=== PATIENT | female | born 1960 | race Caucasian/White ===

== ENCOUNTER 2022-03-27 14:19 | Emergency (ER) | payer SELFPAY ==
--- OUTSIDE RECORDS SUMMARY | 2022-03-27 14:23 | XMS REPORT | Continuity of Care Document ---
:1960 Author Organization [facility] [place] [facility] Address [facility] [place] [address] Care Team Providers Name Role Phone Esteban LAMAS, Pako Vasquez Attending Clinician James CROWE Attending Clinician Ginette LAMAS Attending Clinician GINETTE Attending Clinician Unavailable Ginette LAMAS Admitting Clinician GINETTE Admitting Clinician Unavailable Problems Condition Condition Condition Status Onset Resolution Last Treating Co mments Source Name Details Category Date Date Treatment Clinician Date Urinary Urinary Disease Active Univers tract tract 4-02 ity of obstructio obstructio 00:00: Socialscope n by n by 00 [facility] kidney kidney Branch stone stone Obesity Obesity Disease Active Univers (BMI (BMI 4-02 ity of 30-39.9) 30-39.9) 00:00: [address] Allergies, Adverse Reactions, Alerts Allergy Allergy Status Severity Reaction(s) Onset Inactive Treating Comm ents Source Name Type Date Date Clinician NO KNOWN Drug Active Univers ALLERGIE Class ity of S [facility] Social History Social Habit Start Date Stop Date Quantity Comments Source Exposure to Not sure [facility] SARS-CoV-2 (event) Medica l Branch Tobacco use and 2020-12-08 2020-12-08 Never used [facility] exposure 00:00:00 00:00:00 [facility] Sex [birth year] At [birth year] [facility] 00:00:00 00:00:00 [facility] Smoking Status Start Date Stop Date Source Never smoker General acute hospital Medications Ordered Filled Start Stop Current Ordering Indication Dosage Frequency Signature Comments Components Source Medication Medication Date Date Medication? Clinician (SIG) Name Name lactated Yes 500mL at 75 Univers ringers IV 4-03 mL/hr, 500 ity of infusion 19:15: mL, IV [place] 500 mL 00 Infusion, Medical CONTINUOUS Branch , Starting 12/06/20 at 1415, Until Discontinu ed, Routine, PACU lactated 2020- No 500mL at 75 Univer s ringers IV 12-0604 mL/hr, 500 it y of infusion 19:15: 01:09 mL, IV [place] 500 mL 00 :31 Infusion, Medical CONTINUOUS Branch , Starting 12/06/20 at 1415, Until 12/06/20 at 2009, Routine, PACU ondansetron 2020- No 4mg 4 mg, Slow Univers (ZOFRAN 12-06 IV Push, ity of (PF)) 19:01: 19:11 PRN, 1 [place] injection 4 25 :00 dose, Medical mg Starting Branch 12/06/20 at 1401, Until 12/06/20 at 1411, Routine, Nausea and Vomiting (N/V), PACU ondansetron 2020- No 4mg 4 mg, Slow Univers (ZOFRAN 12-06 IV Push, ity of (PF)) 19:01: 19:11 PRN, 1 [place] injection 4 25 :00 dose, Medical mg Starting Branch 12/06/20 at 1401, Until 12/06/20 at 1411, Routine, Nausea and Vomiting (N/V), PACU iodixanoL 2020- No PRN, Univers (VISIPAQUE 12-06 Starting ity of 270-150 mL) 17:32: 20:04 12/06/20 [place] injection 00 :20 at 1232, Medica l Until Sat Branch 12/06/20 at 1504, Routine, Intra-op enoxaparin Yes 40mg 40 mg, Unive rs (LOVENOX) 12-06 Subcutaneo ity of injection 14:00: [place] 40 mg 00 First dose Medical on Sat Branch 12/06/20 at 0900, Until Discontinu ed, Routine enoxaparin 2020- No 40mg 40 mg, Univ ers (LOVENOX) 12-06- Subcutaneo ity of injection 14:00: 01:09 us, DAILY, [place] 40 mg 00 :31 First dose Medical on Sat Branch 12/06/20 at 0900, Until Discontinu ed, Routine morpHINE No 4mg 4 mg, Slow Un lisa injection 4 12-06 04-04 IV Push, ity of mg 11:18: 00:17 Q4[facility], [place] 43 :09 Starting Medical 12/06/20 Branch at 0618, Until 12/06/20 at 1917, Routine, Pain (scale 7-10) morpHINE No 4mg 4 mg, Slow Un lisa injection 4 12-06 04-04 IV Push, ity of mg 11:18: 00:17 Q4[facility], [place] 43 :09 Starting Medical 12/06/20 Branch at 0618, Until 12/06/20 at 1917, Routine, Pain (scale 7-10) proMETHazin Yes 25mg 25 mg, Univ ers e - Intramuscu ity of (PHENERGAN) 07:47: lar, [place] injection 14 Q6HPRN, Medical 25 mg Starting Branch 12/06/20 at 0247, Until Discontinu ed, Routine, Nausea and Vomiting (N/V) proMETHazin No 25mg 25 mg, Uni vers e 12-06-04 Intramuscu ity of (PHENERGAN) 07:47: 01:09 lar, [place] injection 14 :31 Q6HPRN, Medical 25 mg Starting Branch 12/06/20 at 0247, Until 12/06/20 at 2008, Routine, Nausea and Vomiting (N/V) cefTRIAXone Yes 1000mg 1,000 mg, Univers (ROCEPHIN) 03 IV ity of 1,000 mg in 02:30: Piggyback, [place] NaCl 0.9% 00 Q24H ABX, Medic al (NS) 50 mL First dose Bra [facility] MINI-BAG on Tue12/05/20 at 2130, Until Discontinu ed, 50 mL
R mis for Anti-Infec tive: Documented Infection< br>Documen toro Infection Site: Urine
D uration of Therapy: 7 days NaCl 0.9% Yes 1000mL at 125 Univ ers (NS) IV 4-03 mL/hr, IV ity of infusion 02:30: Infusion, [place] 1,000 mL 00 CONTINUOUS Medic al , Starting Branch Tue12/05/20 at 2130, Until Discontinu ed, Routine cefTRIAXone 2020- No 1000mg 1,000 mg, Univers (ROCEPHIN) 12-06- IV ity of 1,000 mg in 02:30: 01:09 [place], [place] NaCl 0.9% 00 :31 Q24H ABX, Medic al (NS) 50 mL First dose Bra mih MINI-BAG on Tue12/05/20 at 2130, Until Discontinu ed, 50 mL
R mis for Anti-Infec tive: Documented Infection< br>Documen toro Infection Site: Urine
D uration of Therapy: 7 days NaCl 0.9% 2020- No 1000mL at 125 Uni vers (NS) IV 12-06-04 mL/hr, IV ity of infusion 02:30: 01:09 Infusion, [place] 1,000 mL 00 :31 CONTINUOUS Medic al , Starting Branch Tue12/05/20 at 2130, Until 12/06/20 at 2008, Routine cloNIDine Yes .1mg 0.1 mg, Unive rs (CATAPRES) 12-06 Oral, ity of tablet 0.1 01:24: Q4HPRN, [place] mg 29 Starting Medical Tue12/05/20 Branch at 2023, Until Discontinu ed, Routine, above 170/80 cloNIDine 2020- No .1mg 0.1 mg, Univ ers (CATAPRES) 12-06- Oral, ity of tablet 0.1 01:24: 01:09 Q4HPRN, [place] mg 29 :31 Starting Medical [facility] 12/05/20 Branch at 2023, Until 12/06/20 at 2008, Routine, above 170/80 proMETHazin 2020-2020- No 25mg 25 mg, IV Univers e 12-06- Piggyback, ity of (PHENERGAN) 00:45: 23:48 [place]CE, 1 [place] 25 mg in 00 :00 dose, Fri Medica l NaCl 0.9% 12/05/20 at [facility] (NS) 50 mL 1944, 50 piggyback mL morpHINE 0 2020- No 4mg 4 mg, Slow Un lisa injection 4 12-06 IV Push, ity of mg 00:45: 23:39 ONCE, 1 [place] 00 :00 dose, Fri Medical 12/05/20 at [place] 1944, STAT proMETHazin 2020- No 25mg 25 mg, IV Univers e 12-06 Piggyback, ity of (PHENERGAN) 00:45: 23:48 ONCE, 1 [place] 25 mg in 00 :00 dose, Fri Medica l NaCl 0.9% 12/05/20 at [facility] (NS) 50 mL 1944, 50 [place]gyback mL morpHINE 2020- No 4mg 4 mg, Slow Un lisa injection 4 12-06 IV Push, ity of mg 00:45: 23:39 ONCE, 1 [place] 00 :00 dose, [facility] 12/05/20 at [place] 1944, STAT ondansetron Yes 4mg 4 mg, Slow Univers (ZOFRAN 12-06 IV Push, ity of (PF)) 00:18: [place], [place] injection 4 15 Starting Medi ralf mg 12/05/20 Branch at 1917, Until Discontinu ed, Routine, Nausea and Vomiting (N/V) ondansetron 2020- No 4mg 4 mg, Slow Univers (ZOFRAN 12-06-04 IV Push, ity of (PF)) 00:18: 01:09 Q6HPRN, [place] injection 4 15 :31 Starting Medi ralf mg 12/05/20 Branch at 1917, Until 12/06/20 at 2009, Routine, Nausea and Vomiting (N/V) morpHINE 2020-0 2020- No 2mg 2 mg, Slow Un lisa injection 2 12-06-03 IV Push, ity of mg 00:18: 11:18 Q4[place], [place] 09 :56 Starting Medical 12/05/20 Branch at 1917, Until 12/06/20 at 0618, Routine, Pain (scale 7-10) morpHINE No 2mg 2 mg, Slow Un lisa injection 2 12-06 04-03 IV Push, ity of mg 00:18: 11:18 Q4HPRN, [place] 09 :56 Starting Medical 12/05/20 Branch at 191, Until 12/06/20 at 0618, Routine, Pain (scale 7-10) HYDROcodone 2020- No 1{tbl} 1 tablet, Univers -acetaminop 4- 04-05 Oral, ity of hen (NORCO 00:18: 00:17 Q6HPRN, [place] 5) 5-325 mg 04 :04 Starting Medi ralf tablet 1 Tue12/05/20 Branc h tablet at 1917, Until 12/07/20 at 1917, Routine, Pain (scale 4-6) HYDROcodone 2020- No 1{tbl} 1 tablet, Univers -acetaminop 12-06 04-04 Oral, ity of hen (NORCO 00:18: 01:09 Q6HPRN, [place] 5) 5-325 mg 04 :31 Starting Medi ralf tablet 1 Tue12/05/20 Branc h tablet at 1917, Until 12/06/20 at 2008, Routine, Pain (scale 4-6) acetaminoph Yes 650mg 650 mg, Un lisa en 12-06 Oral, ity of (TYLENOL) 00:18: Q6HPRN, [place] tablet 650 00 Starting Medic al mg Tue12/05/20 Branch at 1917, Until Discontinu ed, Routine, Pain (scale 1-3) acetaminoph No 650mg 650 mg, U nivers en - 04-04 Oral, ity of (TYLENOL) 00:18: 01:09 Q6HPRN, [place] tablet 650 00 :31 Starting Medic al mg Tue12/05/20 Branch at 1917, Until 12/06/20 at 2008, Routine, Pain (scale 1-3) acetaminoph Yes [id number] 1{tbl} Take 1 Un lisa en-codeine 4-03 tablet by ity of 300-30 mg 00:00: mouth [place] tablet 00 every 4 Medical (four) Branch hours as needed for Pain (scale 7-10). Indication s: acute pain ciprofloxac 2021-0 Yes [id number] 500mg Take 1 Univers in HCl 500 4-03 tablet by ity of mg tablet 00:00: mouth [place] 00 every 12 Medical (twelve) Branch hours. acetaminoph 2021-0 Yes [id number] 1{tbl} Take 1 Un lisa en-codeine 4-03 tablet by ity of 300-30 mg 00:00: mouth [place] tablet 00 every 4 Medical (four) Branch hours as needed for Pain (scale 7-10). Indication s: acute pain ciprofloxac 1-0 Yes [id number] 500mg Take 1 Univers in HCl 500 4-03 tablet by ity of mg tablet 00:00: mouth [place] 00 every 12 Medical (twelve) Branch hours. acetaminoph 2020-0 Yes [id number] 1{tbl} Take 1 Un lisa en-codeine 4-03 tablet by ity of 300-30 mg 00:00: mouth [place] tablet 00 every 4 Medical (four) Branch hours as needed for Pain (scale 7-10). Indication s: acute pain ciprofloxac 1-0 Yes [id number] 500mg Take 1 Univers in HCl 500 4-03 tablet by ity of mg tablet 00:00: mouth [place] 00 every 12 Medical (twelve) Branch hours. acetaminoph 2020-0 Yes [id number] 1{tbl} Take 1 Un lisa en-codeine 4-03 tablet by ity of 300-30 mg 00:00: mouth [place] tablet 00 every 4 Medical (four) Branch hours as needed for Pain (scale 7-10). Indication s: acute pain ciprofloxac 1-0 Yes [id number] 500mg Take 1 Univers in HCl 500 4-03 tablet by ity of mg tablet 00:00: mouth [place] 00 every 12 Medical (twelve) Branch hours. ciprofloxac 2021-0 2021- No [id number] 500mg Take 1 Univers in HCl 500 4-03 04-03 tablet by ity of mg tablet 00:00: 00:00 mouth [place] 00 :00 every 12 Medical (twelve) Branch hours for 7 days. acetaminoph 2021-0 1- No 4647 1{tbl} Take 1 U nivers en-codeine 4-03 04-03 tablet by ity of 300-30 mg 00:00: 00:00 mouth [place] tablet 00 :00 every 4 Medical (four) Branch hours as needed for Pain (scale 7-10) for up to 7 days. Indication s: acute pain ciprofloxac 2020- No [id number] 500mg Take 1 Univers in HCl 500 12-06 tablet by ity of mg tablet 00:00: 00:00 mouth [place] 00 :00 every 12 Medical (twelve) Branch hours for 7 days. acetaminoph 2020- No 4647 1{tbl} Take 1 U nivers en-codeine 12-06 tablet by ity of 300-30 mg 00:00: 00:00 mouth [place] tablet 00 :00 every 4 Medical (four) Branch hours as needed for Pain (scale 7-10) for up to 7 days. Indication s: acute pain FENTanyl PF 2020- No 25ug 25 mcg, Un lisa (SUBLIMAZE 12-05 Slow IV ity o f (PF)) 23:45: 22:34 Push, [place] injection 00 :00 ONCE, 1 Medical 25 mcg dose, Fri Branch 12/05/20 at 1845, STAT FENTanyl PF 2020- No 25ug 25 mcg, Un lisa (SUBLIMAZE 12-05 Slow IV ity o f (PF)) 23:45: 22:34 Push, [place] injection 00 :00 ONCE, 1 Medical 25 mcg dose, Fri Branch 12/05/20 at 1845, STAT NaCl 0.9% 2020- No 1000mL at 999 Uni vers (NS) bolus 12-05 mL/hr, ity of infusion 22:15: 23:30 1,000 mL, [place] 1,000 mL 00 :00 IV Medical Infusion, Branch ONCE, 1 dose, 12/05/20 at 1715, NARA ondansetron 2020- No 4mg 4 mg, Slow Univers (ZOFRAN 12-05 IV Push, ity of (PF)) 22:15: 22:31 Administer [place] injection 4 00 :00 over 15 Medic al mg Minutes, Branch ONCE, 1 dose, 12/05/20 at 1715, STAT morpHINE 2020- No 2mg 2 mg, Slow Un lisa injection 2 12-05 IV Push, ity of mg 22:15: 22:16 ONCE, 1 [place] 00 :00 dose, Tue Medical 12/05/20 at Branch 1715, STAT NaCl 0.9% 2020- No 1000mL at 999 Uni vers (NS) bolus 12-05-02 mL/hr, ity of infusion 22:15: 23:30 1,000 mL, [place] 1,000 mL 00 :00 IV Medical Infusion, Branch ONCE, 1 dose, 12/05/20 at 1715, NARA ondansetron 2020- No 4mg 4 mg, Slow Univers (ZOFRAN 12-05 IV Push, ity of (PF)) 22:15: 22:31 Administer [place] injection 4 00 :00 over 15 Medic al mg Minutes, [place] ONCE, 1 dose, 12/05/20 at 1715, STAT morpHINE 2020- No 2mg 2 mg, Slow Un lisa injection 2 12-05 IV Push, ity of mg 22:15: 22:16 ONCE, 1 [place] 00 :00 dose, Tue Medical 12/05/20 at Branch 1715, STAT Vital Signs Vital Name Observation Time Observation Value Comments Source Systolic blood 2020-12-06 20:12:00 145 mm[Hg] Univer sity of pressure [facility] Diastolic blood 2020-12-06 20:12:00 93 mm[Hg] Unive rsity of pressure [facility] Heart rate 2020-12-06 20:12:00 87 /min [facility] Body temperature 2020-12-06 20:12:00 36.89 Ana [facility] rate 2020-12-06 20:12:00 16 /min [facility] Oxygen saturation in 2020-12-06 20:12:00 93 /min [facility] Arterial blood by [facility] Pulse oximetry [place] Body height 2020-12-06 01:20:00 157.5 cm [facility] Body weight 2020-12-06 01:20:00 81.1 kg [facility] BMI 2020-12-06 01:20:00 32.70 kg/m2 [facility] Systolic blood 2020-12-06 15:41:00 133 mm[Hg] Univer sity of pressure [facility] Diastolic blood 2020-12-06 15:41:00 70 mm[Hg] Unive rsity of pressure [facility] Heart rate 2020-12-06 15:41:00 72 /min [facility] Body temperature 2020-12-06 15:41:00 36.56 Ana [facility] Respiratory rate 2020-12-06 15:41:00 16 /min [facility] Oxygen saturation in 2020-12-06 15:41:00 99 /min [facility] Arterial blood by [facility] Pulse oximetry Branch Body height 2020-12-06 01:20:00 157.5 cm [facility] Body weight 2020-12-06 01:20:00 81.1 kg [facility] BMI 2020-12-06 01:20:00 32.70 kg/m2 [facility] Procedures Procedure Date / Time Performing Clinician Source Performed [place] TIME OR 2020-12-06 18:47:14 Demetrio Orellana [facility] (NON-REPORTABLE) [facility] [place] TIME OR 2020-12-06 18:47:14 Demetrio Orellana [facility] (NON-REPORTABLE) [facility] URETEROSCOPIC STONE 2020-12-06 16:35:00 Demetrio Orellana [facility] MANIPULATION [facility] Branch BASIC METABOLIC PANEL 2020-12-06 06:45:00 Melania Silvestre [facility] (NA, K, CL, CO2, [facility] Branch GLUCOSE, BUN, CREATININE, CA) BASIC METABOLIC PANEL 2020-12-06 06:45:00 Melania Silvestre [facility] (NA, K, CL, CO2, [facility] GLUCOSE, BUN, CREATININE, CA) COVID-19 (ID NOW RAPID 2020-12-05 23:55:00 Kari Ramirez Un [facility] TESTING) Medical Branch COVID-19 (ID NOW RAPID 2020-12-05 23:55:00 Kari Ramirez Un [facility] TESTING) Medical Branch CT ABDOMEN PELVIS WO 2020-12-05 23:05:40 Kari Ramirez [facility] CONTRAST [facility] Branch CT ABDOMEN PELVIS WO 2020-12-05 23:05:40 Kari Ramirez [facility] CONTRAST [facility] Branch URINALYSIS 2020-12-05 22:19:00 Kari Ramirez [facility] URINE CULTURE 2020-12-05 22:19:00 Kari Ramirez [facility] URINALYSIS 2020-12-05 22:19:00 Kari Ramirez [facility] URINE CULTURE 2020-12-05 22:19:00 Kari Ramirez [facility] LIPASE 2020-12-05 22:15:00 Kari Ramirez [facility] HEPATIC FUNCTION PANEL 2020-12-05 22:15:00 Kari Ramirez [facility] ([id number]) (ALB,T.PRO,BILI Medical Branch T,BU/BC,ALT,AST,ALK PHOS) BASIC METABOLIC PANEL 2020-12-05 22:15:00 Kari Ramirez [facility] (NA, K, CL, CO2, Medical Branch GLUCOSE, BUN, CREATININE, CA) CBC WITH DIFF 2020-12-05 22:15:00 Kari Ramirez [facility] LACTIC ACID WHOLE BLOOD 2020-12-05 22:15:00 Kari Ramirez [facility] LIPASE 2020-12-05 22:15:00 Kari Ramirez [facility] HEPATIC FUNCTION PANEL 2020-12-05 22:15:00 Kari Ramirez [facility] ([id number]) (ALB,T.PRO,BILI Medical Branch T,BU/BC,ALT,AST,ALK PHOS) BASIC METABOLIC PANEL 2020-12-05 22:15:00 Kari Ramirez [facility] (NA, K, CL, CO2, Medical Branch GLUCOSE, BUN, CREATININE, CA) CBC WITH DIFF 2020-12-05 22:15:00 Kari Ramirez [facility] LACTIC ACID WHOLE BLOOD 2020-12-05 22:15:00 Kari Ramirez [facility] Encounters Start End Encounter Admission Attending Care Care Encounter Source Date/Time Date/Time Type Type Clinicians Facility Department ID 2020-12-23 2020-12-23 Telephone Demetrio Orellana [facility] [id number] Univers 00:00:00 00:00:00 un Health [id number] it [id number] [id number] [address] Office Building 2020-12-22 2020-12-22 Telephone Demetrio Orellana [facility] [id number] Univers 00:00:00 00:00:00 [facility] [id number] [place] [id number] [place] [id number] [address] Office Building 2020-12-05 2020-12-06 Emergency Kari Raimrez [facility] [id number] Univers 16:46:00 18:09:00 Kamran Peng [facility] [id number] ity [id number] [phone] [address] ([facility]) 2020-12-06 2020-12-06 Surgery Demetrio Orellana [facility] [id number] Univers 10:05:00 12:14:00 un Health [id number] [id number] [id number] [address] ([facility]) 2020-12-05 2020-12-05 Outpatient X GINETTE [facility] [id number] Univers 16:46:00 16:46:00 KAMRAN gilbert [facility] [place] [facility] Results Test Description Test Time Test Comments Results Result Comments Source Urine Culture 2020-12-07 12:15:50 Test Item Value Reference Range Interpretation Comme nts URINE CULTURE (test code = 630-4) No aerobic growth (< 1000 CFU/mL[facility]-12-06 18:51:39 These images do not require a Radiology diagnostic report[facility]2020-12-06 18:51:39These images do not require a Radiology diagnostic report[facility] (NA, K, CL, CO2, GLUCOSE, BUN, CREATININE, CA)2020-12-06 07:05:23 Test Item Value Reference Range Interpretation Comments NA (test code = 130 mmol/L 135-145 L [id number]) K (test code = 3.6 mmol/L 3.5-5.0 1848363689) CL (test code = 105 mmol/L 98-108 3585331130) CO2 TOTAL (test code = 22 mmol/L 23-31 L 6910225321) AGAP (test code = 2-16 9640710511) BUN (test code = 11 mg/dL 7-23 9919646174) GLUCOSE (test code = 99 mg/dL 70-110 7527649849) CREATININE (test code = 0.92 mg/dL 0.50-1.04 2630929005) CALCIUM (test code = 8.0 mg/dL 8.6-10.6 L 6889944119) eGFR (test code = mL/min/1.73m2 7162334127) JATIN (test code = JATNI) Association of Glomerular Filtration Rate (GFR) and Staging of Kidney Disease* + --+ --+ ------+| GFR (mL/min/1.73 m2) ?| With Kidney Damage ?| ?Without Kidney Damage+ --------+ --------+ +| ?>90 ?| ?Stage one ?| ? Normal ?+ ---+ ---+ -------+| ?60-89 ?| ?Stage two ?| ? Decreased GFR ? + --+ --+ ------+| ?30-59 ?| ?Stage three ?| ? Stage three ? + --+ --+ ------+| ?15-29 ?| ?Stage four ? | ? Stage four ?+ ---+ ---+ -------+| ?<15 (or dialysis) ? ?| ?Stage five ? | ? Stage five ?+ ---+ ---+ -------+ *Each stage assumes the associated GFR level has been in effect for at least three months. ?Stages 1 to 5, with or without kidney disease, indicate chronic kidney disease. Notes: Determination of stages one and two (with eGFR >59mL/min/1.73 m2) requires estimation of kidney damage for at least three months as defined by structural or functional abnormalities of the kidney, manifested by either:Pathological abnormalities or Markers of kidney damage (including abnormalities in the composition of the blood or urine or abnormalities in imaging tests). Lab Interpretation Abnormal (test code = 70134-6) [facility] METABOLIC PANEL (NA, K, CL, CO2, GLUCOSE, BUN, CREATININE, CA)2020-12-06 07:05:23 Test Item Value Reference Range Interpretation Comments NA (test code = 130 mmol/L 135-145 L [id number]) K (test code = 3.6 mmol/L 3.5-5.0 6780031270) CL (test code = 105 mmol/L 98-108 2226092371) CO2 TOTAL (test code = 22 mmol/L 23-31 L 1973720964) AGAP (test code = 2-16 2322151819) BUN (test code = 11 mg/dL 7-23 8970168423) GLUCOSE (test code = 99 mg/dL 70-110 7129542072) CREATININE (test code = 0.92 mg/dL 0.50-1.04 4560908656) CALCIUM (test code = 8.0 mg/dL 8.6-10.6 L 1831926976) eGFR (test code = mL/min/1.73m2 2651374243) JATIN (test code = JATIN) Association of Glomerular Filtration Rate (GFR) and Staging of Kidney Disease* + --+ --+ ------+| GFR (mL/min/1.73 m2) ?| With Kidney Damage ?| ?Without Kidney Damage+ --------+ --------+ +| ?>90 ?| ?Stage one ?| ? Normal ?+ ---+ ---+ -------+| ?60-89 ?| ?Stage two ?| ? Decreased GFR ? + --+ --+ ------+| ?30-59 ?| ?Stage three ?| ? Stage three ? + --+ --+ ------+| ?15-29 ?| ?Stage four ? | ? Stage four ?+ ---+ ---+ -------+| ?<15 (or dialysis) ? ?| ?Stage five ? | ? Stage five ?+ ---+ ---+ -------+ *Each stage assumes the associated GFR level has been in effect for at least three months. ?Stages 1 to 5, with or without kidney disease, indicate chronic kidney disease. Notes: Determination of stages one and two (with eGFR >59mL/min/1.73 m2) requires estimation of kidney damage for at least three months as defined by structural or functional abnormalities of the kidney, manifested by either:Pathological abnormalities or Markers of kidney damage (including abnormalities in the composition of the blood or urine or abnormalities in imaging tests). Lab Interpretation Abnormal (test code = 55125-6) [facility] NOW [facility]APID TEST[facility]2020-12-06 00:25:17 Test Item Value Reference Range Interpretation Comments SARS-CoV-2 Rapid ID NOW Not Detected Not Detected (test code = 43093-6) JATIN (test code = JATIN) ID NOW COVID-19 Assay is an isothermal nucleic acid amplification test intended for the qualitative detection of nucleic acid from SARS-CoV-2 viral RNA in nasopharyngeal (VULCANIZER OPERATOR) specimens. It is used under Emergency Use Authorization (EUA) by FDA. The limit of detection (LOD) of the assay is 125 Genome Equivalents/mL. A positive result is indicative of the presence of SARS-CoV-2 RNA. ?Clinical correlation with patient history and other diagnostic information is necessary to determine patient infection status. A negative (Not Detected) result does not preclude SARS-CoV-2 infection. In patients with clinical symptoms and other tests that are consistent with SARS-CoV-2 infection, negative results should be treated as presumptive negative and a new specimen should be tested with alternative PCR molecular test. Invalid: Please collect a new specimen for repeat patient testing if clinically indicated. Lab Interpretation Normal (test code = 57383-1) [facility]2020-12-06 00:25:17 Test Item Value Reference Range Interpretation Comments SARS-CoV-2 Rapid ID NOW Not Detected Not Detected (test code = 38980-0) JATIN (test code = JATIN) ID NOW COVID-19 Assay is an isothermal nucleic acid amplification test intended for the qualitative detection of nucleic acid from SARS-CoV-2 viral RNA in nasopharyngeal (VULCANIZER OPERATOR) specimens. It is used under Emergency Use Authorization (EUA) by FDA. The limit of detection (LOD) of the assay is 125 Genome Equivalents/mL. A positive result is indicative of the presence of SARS-CoV-2 RNA. ?Clinical correlation with patient history and other diagnostic information is necessary to determine patient infection status. A negative (Not Detected) result does not preclude SARS-CoV-2 infection. In patients with clinical symptoms and other tests that are consistent with SARS-CoV-2 infection, negative results should be treated as presumptive negative and a new specimen should be tested with alternative PCR molecular test. Invalid: Please collect a new specimen for repeat patient testing if clinically indicated. Lab Interpretation Normal (test code = 67128-0) [facility] [id number] 23:31:341. A 1.0 cm obstructing calculus is present at the left ureteropelvicjunction with mild left-sided hydronephrosis. Nonobstructing calculi arealso identified left renal collecting system.2. Multiple low-density lesions are identified in the liver which arepoorly characterized on this noncontrast study,likely representing hepaticcysts.3. Cholecystectomy and hysterectomy have been performed. RL: 2831 ORDERING PHYSICIAN: KARI RAMIREZ ABDOMEN AND PELVIS CT WITHOUT INTRAVENOUS CONTRAST. DATE: ?12/05/2020 CLINICAL INDICATIONS: ?Left flankpain. TECHNIQUE: ?Axial computed tomographic images of the abdomen and pelviswere obtained without intravenous contrast. CT scan was performed accordingto ALARA (As Low as Reasonably Achievable). COMPARISON: None. Abdomen findings: Minimal atelectasis is present in the right lower lobe.The cardiac apex is unremarkable. A 1.0 cm obstructing calculus is present the left ureteropelvic junctionwith mild left-sided hydronephrosis. A nonobstructing calculus is presentin the left renal collecting system. The right kidney and ureter demonstrate no abnormality. Cholecystectomy has been performed. Multiple low-density lesions areidentified in the liver which likely represent cysts measuring up to 1.2 cmin greatest dimension. The spleen, pancreas, adrenal glands and rightkidney demonstrate no abnormality. The stomach, small bowel and colon demonstrate no evidence for obstructionor inflammation. A normal appendix is present in the right lower quadrant. No adenopathy or free fluid are identified in the abdomen. No acute osseousabnormality is visualized. Pelvis findings: The small bowel and colon are normalcaliber. The urinarybladder demonstrates no abnormality. Hysterectomy has been performed. Noadenopathy or free fluid are identified in the pelvis. No acute osseousabnormality is demonstrated. [facility], Radiant Results Inft User - 12/05/2020 6:32 PM CDTORDERING PHYSICIAN: KARI RAMIREZABDOMLELO AND PELVIS CT WITHOUT INTRAVENOUS CONTRAST.DATE: 12/05/2020LINICAL INDICATIONS: Left flank pain.TECHNIQUE: Axial computed tomographic images of the abdomen and pelviswere obtained without intravenous contrast. CT scan was performed accordingto ALARA (As Low as Reasonably Achievable).COMPARISON: None.Abdomen findings: Minimal atelectasis is present in the right lower lobe.The cardiac apex is unremarkable.A 1.0 cm obstructing calculus is present the left ureteropelvic junctionwith mild left- sided hydronephrosis. A nonobstructing calculus is presentin the left renal collecting system.The right kidney and ureter demonstrate no abnormality.Cholecystectomy has been performed. Multiple low-density lesions areidentified in the liver which likely represent cysts measuring up to 1.2 cmin greatest dimension. The spleen, pancreas, adrenal glands and rightkidney demonstrate no abnormality.The stomach, small bowel and colon demonstrate no evidence for obstructionor inflammation. A normal appendix is present in the r ight lower quadrant.No adenopathy or free fluid are identified in the abdomen. No acute osseousabnormality is visualized.Pelvis findings: The small bowel and colon are normal caliber. The urinarybladder demonstrates no abnormality. Hysterectomy has been performed. Noadenopathy or free fluid are identified in the pelvis. No acute osseousabnormality is demonstrated.IMPRESSION1. A 1.0 cm obstructing calculus is present at the left ureteropelvicjunction with mild left-sided hydronephrosis. Nonobstructing calculi arealso identified left renal collecting system.2. Multiple low-density lesions are identified in the liver which arepoorly characterized on this noncontrast study, likely representing hepaticcysts.3. Cholecystectomy and hysterectomy have been performed.RL: 2831 [facility] [id number] 23:31:341. A 1.0 cm obstructing calculus is present at the left ureteropelvicjunction with mild left-sided hydronephrosis. Nonobstructing calculi arealso identified left renal collecting system.2. Multiple low-density lesions are identified in the liver which arepoorly characterized on this noncontrast study,likely representing hepaticcysts.3. Cholecystectomy and hysterectomy have been performed. RL: 2831 ORDERING PHYSICIAN: KARI RAMIREZ ABDOMEN AND PELVIS CT WITHOUT INTRAVENOUS CONTRAST. DATE: ?12/05/2020 CLINICAL INDICATIONS: ?Left flankpain. TECHNIQUE: ?Axial computed tomographic images of the abdomen and pelviswere obtained without in travenous contrast. CT scan was performed accordingto ALARA (As Low as Reasonably Achievable). COMPARISON: None. Abdomen findings: Minimal atelectasis is present in the right lower lobe.The cardiac apex is unremarkable. A 1.0 cm obstructing calculus is present the left ureteropelvic junctionwith mild left- sided hydronephrosis. A nonobstructing calculus is presentin the left renal collecting system. The right kidney and ureter demonstrate no abnormality. Cholecystectomy has been performed. Multiple low-density lesions areidentified in the liver which likely represent cysts measuring up to 1.2 cmin greatest dimension. The spleen, pancreas, adrenal glands and rightkidney demonstrate no abnormality. The stomach, small bowel and colon demonstrate no evidence for obstructionor inflammation. A normal appendix is present in the right lower quadrant. No adenopathy or free fluid are identified in the abdomen. No acute osseousabnormality is visualized. Pelvis findings: The small bowel and colon are normalcaliber. The urinarybladder demonstrates no abnormality. Hysterectomy has been performed. Noadenopathy or free fluid are identified in the pelvis. No acute osseousabnormality is demonstrated. [facility], Radiant Results Inft User - 12/05/2020 6:32 PM CDTORDERING PHYSICIAN: KARI RAMIREZABDOMEN AND PELVIS CT WITHOUT INTRAVENOUS CONTRAST.DATE: 12/05/2020LINICAL INDICATIONS: Left flank pain.TECHNIQUE: Axial computed tomographic images of the abdomen and pelviswere obtained without intravenous contrast. CT scan was performed accordingto ALARA (As Low as Reasonably Achievable).COMPARISON: None.Abdomen f indings: Minimal atelectasis is present in the right lower lobe.The cardiac apex is unremarkable.A 1.0 cm obstructing calculus is present the left ureteropelvic junctionwith mild left-sided hydronephrosis. A nonobstructing calculus is presentin the left renal collecting system.The right kidney and ureter demonstrate no abnormality.Cholecystectomy has been performed. Multiple low- density lesions areidentified in the liver which likely represent cysts measuring up to 1.2 cmin greatest dimension. The spleen, pancreas, adrenal glands and rightkidney demonstrate no abnormality.The stomach, small bowel and colon demonstrate no evidence for obstructionor inflammation. A normal appendix is present in the right lower quadrant.No adenopathy or free fluid are identified in the abdomen. No acute osseousabnormality is visualized.Pelvis findings: The small bowel and colon are normal caliber. The urinarybladder demonstrates no abnormality. Hysterectomy has been performed. Noadenopathy or free fluid are identified in the pelvis. No acute osseousabnormality is demonstrated.IMPRESSION1. A 1.0 cm obstructing calculus is present at the left ureteropelvicjunction with mild left-sided hydronephrosis. Nonobstructing calculi arealso identified left renal collecting system.2. Multiple low-density lesions are identified in the liver which arepoorly characterized on this noncontrast study, likely representing hepaticcysts.3. Cholecystectomy and hysterectomy have been performed.RL: 2831 [facility] 22:53:46 Test Item Value Reference Range Interpretation Comments APPEARANCE (test code = Clear Clear 6297346866) COLOR (test code = Yellow Yellow 4162274600) PH (test code = 4.8-8.0 9886906923) SP GRAVITY (test code = >1.030 1.003-1.030 H 0803459028) GLU U QUAL (test code = Negative Negative 6953998092) BLOOD (test code = Negative Negative 5422056824) KETONES (test code = 40 mg/dL Negative A 3249337557) PROTEIN (test code = Negative Negative 2887-8) UROBILIN (test code = 0.2 mg/dL See_Comment [Auto mated message] 4724315882) The system [employer] generated this result transmit toro reference range : 0-1.0 mg/dL. Th e reference range was not used to interpret this result as normal/abnormal . BILIRUBIN (test code = Negative Negative 3152069680) NITRITE (test code = Negative Negative 2205658376) LEUK NEGRO (test code = Negative Negative 9540103517) RBC/HPF (test code = <1 See_Comment [Autom ated message] 7484602743) The system [employer] generated this result transmit toro reference range : 0 - 3 HPF. The refe rence range was not u sed to interpret th is result as normal/abnormal . WBC/HPF (test code = See_Comment [Autom ated message] 3792189783) The system [employer] generated this result transmit toro reference range : 0 - 5 HPF. The refe rence range was not u sed to interpret th is result as normal/abnormal . BACTERIA (test code = Negative Negative 5792780028) SQ EPITH (test code = <1 See_Comment [Auto mated message] 5800485741) The system [employer] generated this result transmit toro reference range : <=2 HPF. The refere nce range was not u sed to interpret th is result as normal/abnormal . CA OXALATE (test code = See_Comment H [Au tomated message] 6877078616) The system [employer] generated this result transmit toro reference range : <=1 HPF. The refere nce range was not u sed to interpret th is result as normal/abnormal . Lab Interpretation (test Abnormal code = 45456-0) [facility] 22:53:46 Test Item Value Reference Range Interpretation Comments APPEARANCE (test code = Clear Clear 1162228431) COLOR (test code = Yellow Yellow 4368309927) PH (test code = 4.8-8.0 8442686980) SP GRAVITY (test code = >1.030 1.003-1.030 H 0552126635) GLU U QUAL (test code = Negative Negative 9222130259) BLOOD (test code = Negative Negative 7718077387) KETONES (test code = 40 mg/dL Negative A 0603464724) PROTEIN (test code = Negative Negative 2887-8) UROBILIN (test code = 0.2 mg/dL See_Comment [Auto mated message] 9169596419) The system [employer] generated this result transmit toro reference range : 0-1.0 mg/dL. Th e reference range was not used to interpret this result as normal/abnormal . BILIRUBIN (test code = Negative Negative 3628883096) NITRITE (test code = Negative Negative 7169597404) LEUK NEGRO (test code = Negative Negative 8097077154) RBC/HPF (test code = <1 See_Comment [Autom ated message] 4291791770) The system [employer] generated this result transmit toro reference range : 0 - 3 HPF. The refe rence range was not u sed to interpret th is result as normal/abnormal . WBC/HPF (test code = See_Comment [Autom ated message] 6764213623) The system [employer] generated this result transmit toro reference range : 0 - 5 HPF. The refe rence range was not u sed to interpret th is result as normal/abnormal . BACTERIA (test code = Negative Negative 0129703623) SQ EPITH (test code = <1 See_Comment [Auto mated message] 6071240517) The system [employer] generated this result transmit toro reference range : <=2 HPF. The refere nce range was not u sed to interpret th is result as normal/abnormal . CA OXALATE (test code = See_Comment H [Au tomated message] 9091999869) The system [employer] generated this result transmit toro reference range : <=1 HPF. The refere nce range was not u sed to interpret th is result as normal/abnormal . Lab Interpretation (test Abnormal code = 57725-0) [facility] [id number] 22:46:45 Test Item Value Reference Range Interpretation Comments LIPASE (test code = 2912258185) 68 U/L 0-220 Lab Interpretation (test code = Normal 51506-4) [facility] [id number] 22:46:45 Test Item Value Reference Range Interpretation Comments LIPASE (test code = 0040621283) 68 U/L 0-220 Lab Interpretation (test code = Normal 77757-4) [facility] Metabolic Panel (NA, K, CL, CO2, GLUCOSE, BUN, CREATININE, CA)2020-12-05 22:46:44 Test Item Value Reference Range Interpretation Comments NA (test code = 132 mmol/L 135-145 L 3684649485) K (test code = 3.6 mmol/L 3.5-5.0 5753450495) CL (test code = 100 mmol/L 98-108 8076184926) CO2 TOTAL (test code = 19 mmol/L 23-31 L 5859096872) AGAP (test code = 2-16 6846183409) BUN (test code = 14 mg/dL 7-23 6876572786) GLUCOSE (test code = 106 mg/dL 70-110 6784850268) CREATININE (test code = 0.97 mg/dL 0.50-1.04 0035786837) CALCIUM (test code = 9.3 mg/dL 8.6-10.6 9642750467) eGFR (test code = mL/min/1.73m2 8609390750) JATIN (test code = JATIN) Association of Glomerular Filtration Rate (GFR) and Staging of Kidney Disease* + --+ --+ ------+| GFR (mL/min/1.73 m2) ?| With Kidney Damage ?| ?Without Kidney Damage+ --------+ --------+ +| ?>90 ?| ?Stage one ?| ? Normal ?+ ---+ ---+ -------+| ?60-89 ?| ?Stage two ?| ? Decreased GFR ? + --+ --+ ------+| ?30-59 ?| ?Stage three ?| ? Stage three ? + --+ --+ ------+| ?15-29 ?| ?Stage four ? | ? Stage four ?+ ---+ ---+ -------+| ?<15 (or dialysis) ? ?| ?Stage five ? | ? Stage five ?+ ---+ ---+ -------+ *Each stage assumes the associated GFR level has been in effect for at least three months. ?Stages 1 to 5, with or without kidney disease, indicate chronic kidney disease. Notes: Determination of stages one and two (with eGFR >59mL/min/1.73 m2) requires estimation of kidney damage for at least three months as defined by structural or functional abnormalities of the kidney, manifested by either:Pathological abnormalities or Markers of kidney damage (including abnormalities in the composition of the blood or urine or abnormalities in imaging tests). Lab Interpretation Abnormal (test code = 68349-6) [facility] (ALB, T.PRO, BILI T, BU/BC, ALT, AST, ALK PHOS)2020-12-05 22:46:44 Test Item Value Reference Range Interpretation Comments TOTAL BILI (test code = 8666299584) 1.1 mg/dL 0.1-1.1 BILI UNCON (test code = 7042611808) 0.9 mg/dL 0.1-1.1 BILI CONJ (test code = 1766611248) 0.0 mg/dL 0.0-0.3 T PROTEIN (test code = 8904555143) 6.7 g/dL 6.3-8.2 ALBUMIN (test code = 3619896319) 4.1 g/dL 3.5-5.0 ALK PHOS (test code = 3534691574) 126 U/L 34-122 H ALTv (test code = 1742-6) 13 U/L 5-35 AST(SGOT) (test code = 0579617813) 23 U/L 13-40 Lab Interpretation (test code = Abnormal 73602-6) [facility] (NA, K, CL, CO2, GLUCOSE, BUN, CREATININE, CA)2020-12-05 22:46:44 Test Item Value Reference Range Interpretation Comments NA (test code = 132 mmol/L 135-145 L 4483770226) K (test code = 3.6 mmol/L 3.5-5.0 8123135514) CL (test code = 100 mmol/L 98-108 1876435313) CO2 TOTAL (test code = 19 mmol/L 23-31 L 4741365316) AGAP (test code = 2-16 9588919467) BUN (test code = 14 mg/dL 7-23 2917383347) GLUCOSE (test code = 106 mg/dL 70-110 0538358644) CREATININE (test code = 0.97 mg/dL 0.50-1.04 6058128829) CALCIUM (test code = 9.3 mg/dL 8.6-10.6 7255764595) eGFR (test code = mL/min/1.73m2 8660570677) JATIN (test code = JATIN) Association of Glomerular Filtration Rate (GFR) and Staging of Kidney Disease* + --+ --+ ------+| GFR (mL/min/1.73 m2) ?| With Kidney Damage ?| ?Without Kidney Damage+ --------+ --------+ +| ?>90 ?| ?Stage one ?| ? Normal ?+ ---+ ---+ -------+| ?60-89 ?| ?Stage two ?| ? Decreased GFR ? + --+ --+ ------+| ?30-59 ?| ?Stage three ?| ? Stage three ? + --+ --+ ------+| ?15-29 ?| ?Stage four ? | ? Stage four ?+ ---+ ---+ -------+| ?<15 (or dialysis) ? ?| ?Stage five ? | ? Stage five ?+ ---+ ---+ -------+ *Each stage assumes the associated GFR level has been in effect for at least three months. ?Stages 1 to 5, with or without kidney disease, indicate chronic kidney disease. Notes: Determination of stages one and two (with eGFR >59mL/min/1.73 m2) requires estimation of kidney damage for at least three months as defined by structural or functional abnormalities of the kidney, manifested by either:Pathological abnormalities or Markers of kidney damage (including abnormalities in the composition of the blood or urine or abnormalities in imaging tests). Lab Interpretation Abnormal (test code = 77842-1) [facility] (ALB, T.PRO, BILI T, BU/BC, ALT, AST, ALK PHOS)2020-12-05 22:46:44 Test Item Value Reference Range Interpretation Comments TOTAL BILI (test code = 7813390842) 1.1 mg/dL 0.1-1.1 BILI UNCON (test code = 8608313720) 0.9 mg/dL 0.1-1.1 BILI CONJ (test code = 1676996098) 0.0 mg/dL 0.0-0.3 T PROTEIN (test code = 4931914197) 6.7 g/dL 6.3-8.2 ALBUMIN (test code = 7094506836) 4.1 g/dL 3.5-5.0 ALK PHOS (test code = 6482403340) 126 U/L 34-122 H ALTv (test code = 1742-6) 13 U/L 5-35 AST(SGOT) (test code = 0355245181) 23 U/L 13-40 Lab Interpretation (test code = Abnormal 02736-0) [facility] with Cjetsrqbvejg1235-32-08 22:23:33 Test Item Value Reference Range Interpretation Comments WBC (test code = See_Comment H [Automated 4390-2) message] The sy stem which generated this result transmitted reference range : 4.30 - 11.10 10*3/?L. The reference range was not used to interpret this result as normal/abnormal . RBC (test code = See_Comment [Automated 789-8) message] The sy stem which generated this result transmitted reference range : 3.93 - 5.25 10*6/?L. The reference range was not used to interpret this result as normal/abnormal . HGB (test code = 13.5 g/dL 11.6-15.0 718-7) HCT (test code = 39.6 % 35.7-45.2 4544-3) MCV (test code = 84.6 fL 80.6-95.5 787-2) MCH (test code = 28.8 pg 25.9-32.8 785-6) MCHC (test code = 34.1 g/dL 31.6-35.1 786-4) RDW-SD (test code = 39.5 fL 39.0-49.9 27305-4) RDW-CV (test code = 12.8 % 12.0-15.5 788-0) PLT (test code = See_Comment [Automated 777-3) message] The sy stem which generated this result transmitted reference range : 166 - 358 10*3/ ?L. The reference r ayan was not used to interpret this result as normal/abnormal . MPV (test code = 9.6 fL 9.5-12.9 20422-5) NRBC/100 WBC (test See_Comment [Automat ed code = 6213757177) message] The system which generated this result transmitted reference range : 0.0 - 10.0 /100 WBCs. The refer ence range was not u sed to interpret th is result as normal/abnormal . NRBC x10^3 (test code <0.01 See_Comment [Auto mated = 4946699881) message] The s ystem which generated this result transmitted reference range : 10*3/?L. The reference range was not used to interpret this result as normal/abnormal . GRAN MAT (NEUT) % 80.8 % (test code = 770-8) IMM GRAN % (test code 0.40 % = 0614569284) LYMPH % (test code = 12.6 % 736-9) MONO % (test code = 4.6 % 5905-5) EOS % (test code = 1.3 % 713-8) BASO % (test code = 0.3 % 706-2) GRAN MAT x10^3(ANC) 9.61 10*3/uL 1.88-7.09 H (test code = 5463959706) IMM GRAN x10^3 (test 0.05 10*3/uL 0.00-0.06 code = 9135347902) LYMPH x10^3 (test code 1.50 10*3/uL 1.32-3.29 = 731-0) MONO x10^3 (test code 0.55 10*3/uL 0.33-0.92 = 742-7) EOS x10^3 (test code = 0.16 10*3/uL 0.03-0.39 711-2) BASO x10^3 (test code 0.03 10*3/uL 0.01-0.07 = 704-7) Lab Interpretation Abnormal (test code = 62632-8) [facility] with [id number] 22:23:33 Test Item Value Reference Range Interpretation Comments WBC (test code = See_Comment H [Automated 6090-2) message] The sy stem which generated this result transmitted reference range : 4.30 - 11.10 10*3/?L. The reference range was not used to interpret this result as normal/abnormal . RBC (test code = See_Comment [Automated 279-8) message] The sy stem which generated this result transmitted reference range : 3.93 - 5.25 10*6/?L. The reference range was not used to interpret this result as normal/abnormal . HGB (test code = 13.5 g/dL 11.6-15.0 718-7) HCT (test code = 39.6 % 35.7-45.2 4544-3) MCV (test code = 84.6 fL 80.6-95.5 787-2) MCH (test code = 28.8 pg 25.9-32.8 785-6) MCHC (test code = 34.1 g/dL 31.6-35.1 786-4) RDW-SD (test code = 39.5 fL 39.0-49.9 53450-1) RDW-CV (test code = 12.8 % 12.0-15.5 788-0) PLT (test code = See_Comment [Automated 777-3) message] The sy stem which generated this result transmitted reference range : 166 - 358 10*3/ ?L. The reference r ayan was not used to interpret this result as normal/abnormal . MPV (test code = 9.6 fL 9.5-12.9 19589-6) NRBC/100 WBC (test See_Comment [Automat ed code = 9881150284) message] The system which generated this result transmitted reference range : 0.0 - 10.0 /100 WBCs. The refer ence range was not u sed to interpret th is result as normal/abnormal . NRBC x10^3 (test code <0.01 See_Comment [Auto mated = 1203787174) message] The s ystem which generated this result transmitted reference range : 10*3/?L. The reference range was not used to interpret this result as normal/abnormal . GRAN MAT (NEUT) % 80.8 % (test code = 770-8) IMM GRAN % (test code 0.40 % = 2848518738) LYMPH % (test code = 12.6 % 736-9) MONO % (test code = 4.6 % 5905-5) EOS % (test code = 1.3 % 713-8) BASO % (test code = 0.3 % 706-2) GRAN MAT x10^3(ANC) 9.61 10*3/uL 1.88-7.09 H (test code = 8745792189) IMM GRAN x10^3 (test 0.05 10*3/uL 0.00-0.06 code = 0276515188) LYMPH x10^3 (test code 1.50 10*3/uL 1.32-3.29 = 731-0) MONO x10^3 (test code 0.55 10*3/uL 0.33-0.92 = 742-7) EOS x10^3 (test code = 0.16 10*3/uL 0.03-0.39 711-2) BASO x10^3 (test code 0.03 10*3/uL 0.01-0.07 = 704-7) Lab Interpretation Abnormal (test code = 23407-7) [facility] Whole [id number] 22:22:42 Test Item Value Reference Range Interpretation Comments LACTIC ACID (test code = 1.51 mmol/L 0.50-2.20 9791186305) Lab Interpretation (test code = Normal 28862-6) [facility] Whole [id number] 22:22:42 Test Item Value Reference Range Interpretation Comments LACTIC ACID (test code = 1.51 mmol/L 0.50-2.20 1701790164) Lab Interpretation (test code = Normal 97847-9) [facility]"
[2022-03-27] MEDS ORDERED: HYDROMORPHONE HCL 1 MG/ML INJ ONE ×2 (14:28→15:01)
[2022-03-27 15:28] LABS: Absolute Lymphocytes (CBC) 1.3 K/uL (0.7-4.9); Hematocrit 39.3 % (36.0-45.0); Lymphocytes % 13.1 % (15.3-44.8); MCV 85.7 fL (80-100); MPV 7.4 fL (7.6-11.3); RBC Red Blood Cell Count 4.59 M/uL (3.86-4.86)
[2022-03-27 15:42] LABS: Potassium 3.7 mmol/L (3.5-5.1)
[2022-03-27] MEDS ORDERED: ONDANSETRON 4 MG/2 ML VIAL ONE ×2 (16:25→18:55)
[2022-03-27] MEDS ORDERED: MORPHINE 4 MG/ML SYR ONE (16:25)
--- NOTE | 2022-03-27 16:28 | RAD REPORT ---
EXAM DESCRIPTION: RAD - Ankle Right 3 View - 03/27/2022 4:21 pm CLINICAL HISTORY: fall COMPARISON: Ankle Left 3 View dated 03/27/2022 FINDINGS/IMPRESSION: Minimally displaced fracture involving the fibular tip. No malalignment of the ankle. Calcaneal spurring. No dislocation.
--- NOTE | 2022-03-27 16:28 | RAD REPORT ---
EXAM DESCRIPTION: RAD - Tib Fib Left - 03/27/2022 4:21 pm CLINICAL HISTORY: fall COMPARISON: Ankle Left 3 View dated 03/27/2022 FINDINGS/IMPRESSION: Trimalleolar fracture. Reference the ankle radiograph. No other fracture of the tibia or fibula.
--- NOTE | 2022-03-27 16:30 | RAD REPORT ---
EXAM DESCRIPTION: RAD - Ankle Left 3 View - 03/27/2022 4:21 pm CLINICAL HISTORY: PAIN COMPARISON: No comparisons FINDINGS/IMPRESSION: Trimalleolar fracture with posterior ankle dislocation. . There is disruption o f the ankle mortise. The distal fibular fracture is displaced by approximately 1/2 shaft width with a component of overriding extension to the tibiofibular syndesmosis. The medial malleolar fracture is displaced inferiorly. Posterior malleolar fracture noted.
[2022-03-27] MEDS ORDERED: propofoL 1,000 MG/100 ML VIAL IV ONE (16:46)
--- NOTE | 2022-03-27 18:37 | RAD REPORT ---
EXAM DESCRIPTION: RAD - Ankle Left 3 View - 03/27/2022 6:30 pm CLINICAL HISTORY: post reduction COMPARISON: Ankle Left 3 View dated 03/27/2022 FINDINGS/IMPRESSION: Post close reduction of the known trimalleolar fracture. Alignment has improved . The ankle mortise has been mostly restored.
--- NOTE | 2022-03-27 18:42 | EDPHYS ---
Physician Documentation [facility] Name: Jossy Zaragoza Age: 61 yrs Sex: Female : 1960 Arrival Date: 03/27/2022 Time: 14:23 Bed 19 Private MD: ED Physician Leann Pretty HPI: 03/27 14:24 This 61 yrs old Female presents to ER via EMS with complaints of Ankle Injury. jmm 14:24 The patient presents with an injury, pain. Onset: The symptoms/episode began/occurred jmm acutely, just prior to arrival. Associated signs and symptoms: Pertinent positives: swelling. This is a 61-year-old female with no chronic medical conditions the presents emerged department with deformity to the left ankle and pain to the right ankle following a fall which occurred just prior to arrival. Patient states she stepped in a pothole and feels like her left ankle is . Patient states she felt a pop and crunch. Patient denies hitting her head. Historical: - Allergies: 14:29 No Known Allergies; tw2 - Home Meds: 14:29 None [Active]; tw2 - PMHx: 14:29 None; tw2 - Immunization history:: Adult Immunizations. - Social history:: Smoking status: . ROS: 14:24 Constitutional: Negative for fever, chills, and weight loss, Cardiovascular: Negative jmm for chest pain, palpitations, and edema, Respiratory: Negative for shortness of breath, cough, wheezing, and pleuritic chest pain. 14:24 MS/extremity: Positive for injury or acute deformity, pain. 14:24 All other systems are negative. Exam: 14:24 Constitutional: This is a well developed, well nourished patient who is awake, alert, jmm and in no acute distress. Head/Face: atraumatic. Eyes: EOMI, no conjunctival erythema appreciated ENT: Moist Mucus Membranes Neck: Trachea midline, Supple Chest/axilla: Normal chest wall appearance and motion. Cardiovascular: Regular rate and rhythm. No edema appreciated Respiratory: Normal respirations, no respiratory distress appreciated Abdomen/GI: Non distended Back: Normal ROM Skin: General appearance color normal 14:24 Musculoskeletal/extremity: Swelling noted to the left ankle, diffusely tender to palpation, full dorsalis pedis pulse appreciated, compartments are soft, neurovascular intact. Mild swelling noted to the right ankle, nontender to palpation, full dorsalis pedis pulse, neurovascular intact. 14:24 Skin: Appearance: Color: normal in color. 14:24 Neuro: Orientation: is normal, Mentation: is normal, Memory: is normal. 14:24 Psych: Behavior/mood is pleasant, cooperative. Vital Signs: 14:16 BP 200 / 95; Pulse 106; Resp 17; Temp 98.8(O); Pulse Ox 97% on R/A; Weight 87.54 kg tw2 (R); Height 5 ft. 2 in. (157.48 cm); Pain 10/10; 14:42 BP 159 / 86; Pulse 115; Resp 18; Pulse Ox 98% on R/A; tw2 15:43 BP 173 / 101; Pulse 108; Resp 18; Pulse Ox 99% on 2 lpm NC; tw2 16:24 BP 169 / 105; Pulse 104; Resp 17; Pulse Ox 96% on R/A; Pain 10/10; tw2 18:22 BP 146 / 93; Pulse 107; Resp 18; Pulse Ox 97% on R/A; tw2 18:50 Pulse Ox 88% on R/A; tw2 20:57 BP 150 / 86; Pulse 102; Resp 17; Pulse Ox 98% on R/A; lg3 14:16 Body Mass Index 35.30 (87.54 kg, 157.48 cm) tw2 18:50 pt placed on o2 at 2L at this time. pt drowsy, falls asleep easily. provider notified. tw2 will continue to monitor Procedures: 20:32 Reduction: of the left ankle, using traction, manipulation, Immobilized with [facility] Ortho-Glass posterior with stirrup. Patient tolerated well. Post reduction film - reveals improved alignment. MDM: 14:24 Patient medically screened. [facility] 18:41 Data reviewed: vital signs, nurses notes. Counseling: I had a detailed discussion with torrey the patient and/or guardian regarding: the historical points, exam findings, and any diagnostic results supporting the discharge/admit diagnosis, radiology results, the need for outpatient follow up, to return to the emergency department if symptoms worsen or persist or if there are any questions or concerns that arise at home. 18:41 ED course: I discussed the patient with Dr. Barry who recommended reduction along [facility] with outpatient follow-up. 03/27 15:05 Order name: CBC with Diff; Complete Time: 15:30 [facility] 03/27 15:05 Order name: BMP; Complete Time: 15:43 [facility] 03/27 14:25 Order name: Ankle Left 3 View XRAY; Complete Time: 16:40 [facility] 03/27 14:27 Order name: Tib Fib Left XRAY; Complete Time: 16:40 [facility] 03/27 14:27 Order name: Ankle Right 3 View XRAY; Complete Time: 16:40 [facility] 03/27 17:26 Order name: Ankle Left 3 View XRAY; Complete Time: 18:40 [facility] 03/27 18:48 Order name: Crutches; Complete Time: 20:57 tw2 03/27 18:48 Order name: Crutch Training; Complete Time: 20:56 tw2 Administered Medications: 14:24 Drug: Dilaudid (HYDROmorphone) 1 mg Route: IVP; Site: right subclavian; tw2 14:55 Follow up: Response: No adverse reaction; Pain is unchanged, physician notified; RASS: tw2 Alert and Calm (0) 14:59 Drug: Dilaudid (HYDROmorphone) 1 mg {Note: RASS 0.} Route: IVP; Site: right antecubital;tw2 16:15 Follow up: Response: No adverse reaction; Pain is unchanged, physician notified; RASS: tw2 Alert and Calm (0) 16:16 Drug: Zofran (Ondansetron) 4 mg Route: IVP; Site: right antecubital; tw2 17:00 Follow up: Response: No adverse reaction tw2 16:19 Drug: morphine 4 mg Route: IVP; Infused Over: 4 mins; Site: right antecubital; tw2 16:30 Follow up: Response: No adverse reaction; Pain is decreased; RASS: Alert and Calm (0) tw2 17:19 Drug: Propofol 50 mg Route: IVP; Site: right antecubital; tw2 18:19 Follow up: Response: No adverse reaction tw2 17:19 Drug: Propofol 30 mg Route: IVP; Site: right antecubital; tw2 18:20 Follow up: Response: No adverse reaction tw2 18:52 Drug: Zofran (Ondansetron) 4 mg Route: IVP; Site: right antecubital; tw2 20:08 Follow up: Response: No adverse reaction lg3 Disposition: 03/28 07:54 STAFF ATTESTATION The patient's history, exam findings, diagnostics, and a summary of sd2 any interventions or procedures was reviewed in detail with the ED midlevel provider. I confirm the diagnosis as documented by the midlevel provider and I agree with the care plan articulated in the disposition section with regards to our discussion of the patient's case. Leann Pretty MD. Disposition Summary: 03/27/22 18:42 Discharge Ordered Location: Home [facility] Condition: Stable [facility] Diagnosis - Displaced trimalleolar fracture of left lower leg, initial encounter for closed [facility] fracture - Distal fibular fracture [facility] Followup: [facility] - With: José Antonio Barry MD - When: 2 - 3 days - Reason: Recheck today's complaints, Continuance of care, Re-evaluation by your physician Discharge Instructions: - Discharge Summary Sheet [facility] - Ankle Fracture [facility] Forms: - Medication Reconciliation Form [facility] - Thank You Letter [facility] - Antibiotic Education [facility] - Prescription Opioid Use [facility] Prescriptions: - Tylenol-Codeine #3 300 mg-30 mg Oral - take 1 tablet by ORAL route every 4 hours; 20 tablet; Refills: 0, Product [facility] Selection Permitted Signatures: Dispatcher [employer] EDMS Duane Gordon PA PA Keke Peng, RN RN tw2 Leann Pretty sd2 Allie Tomas RN lg3 Corrections: (The following items were deleted from the chart) 03/27 14:33 14:25 IV Saline Lock ordered. charles tw2
--- NOTE | 2022-03-27 18:42 | ER ---
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 obvious deformity with rotation noted to LEFT ankle with bruising noted. Coronavirus screen: At this time, the client does not indicate any symptoms associated with coronavirus-19. Ebola Screen: Patient denies travel to an Ebola-affected area in the 21 days before illness onset. Initial Sepsis Screen: Does the patient meet any 2 criteria? HR > 90 bpm. No. Patient's initial sepsis screen is negative. Does the patient have a suspected source of infection? No. Patient's initial sepsis screen is negative. Risk Assessment: Do you want to hurt yourself or someone else? Patient reports no desire to harm self or others. Onset of symptoms was March 27, 2022. Care prior to arrival: Splint applied. Care prior to arrival: Medication(s) given: 100 mcg Fentanyl IV. EMS states "it has already wore off per pt" IV initiated. 20 GA, in the right antecubital area. 14:16 Method Of Arrival: EMS: [facility] tw2 14:16 Acuity: TIO 3 tw2 14:16 Note provider at bedside. tw2 Triage Assessment: 14:16 General: Appears uncomfortable, well groomed, Behavior is cooperative, crying. Pain: tw2 Complains of pain in left ankle. Neuro: Level of Consciousness is awake, alert, obeys commands, Oriented to person, place, time, situation. Respiratory: Airway is patent Respiratory effort is even, unlabored, Respiratory pattern is regular, symmetrical. GI: No signs and/or symptoms were reported involving the gastrointestinal system. : No signs and/or symptoms were reported regarding the genitourinary system. Musculoskeletal: Circulation, motion, and sensation intact. Range of motion: limited in left ankle. Historical: - Allergies: 14:29 No Known Allergies; tw2 - Home Meds: 14:29 None [Active]; tw2 - PMHx: 14:29 None; tw2 - Immunization history:: Adult Immunizations. - Social history:: Smoking status: . Screenin:31 Abuse screen: Denies threats or abuse. Nutritional screening: No deficits noted. tw2 Tuberculosis screening: No symptoms or risk factors identified. Fall Risk None identified. Assessment: 14:31 Reassessment: see triage assessment. tw2 14:42 Reassessment: No changes from previously documented assessment. Patient and/or family tw2 updated on plan of care and expected duration. Pain level reassessed. Patient is alert, oriented x 3, equal unlabored respirations, skin warm/dry/pink. xray at bedside at this time. Patient states symptoms have not improved. 15:44 Reassessment: No changes from previously documented assessment. Patient and/or family tw2 updated on plan of care and expected duration. Pain level reassessed. Patient is alert, oriented x 3, equal unlabored respirations, skin warm/dry/pink. 16:24 Reassessment: No changes from previously documented assessment. Patient and/or family tw2 updated on plan of care and expected duration. Pain level reassessed. Patient is alert, oriented x 3, equal unlabored respirations, skin warm/dry/pink. Patient states symptoms have not improved. 17:19 Reassessment: SEE CONSCIOUS SEDATION FLOW SHEET in patients charge. tw2 18:10 Reassessment: Patient and/or family updated on plan of care and expected duration. Pain tw2 level reassessed. Patient is alert, oriented x 3, equal unlabored respirations, skin warm/dry/pink. pt at baseline at this time. on RA at 97%. 18:48 Reassessment: pt c/o nauseousness at this time. 02 \\T\\ 88%, pt placed on 2L NC at this tw2 time. will continue to monitor. 20:08 General: Appears in no apparent distress. comfortable, Behavior is calm, cooperative, lg3 drowsy. Pain: Denies pain. Neuro: No deficits noted. Guadalupe Agitation-Sedation Scale (RASS): -1 Drowsy Level of Consciousness is awake, alert, obeys commands, Oriented to person, place, time, situation. Cardiovascular: No deficits noted. Denies chest pain, shortness of breath, Capillary refill < 3 seconds Clubbing of nail beds is absent JVD is absent Patient's skin is warm and dry. Respiratory: No deficits noted. Airway is patent Trachea midline Respiratory effort is even, unlabored, Respiratory pattern is regular, symmetrical, Breath sounds are clear bilaterally. GI: No deficits noted. No signs and/or symptoms were reported involving the gastrointestinal system. : No deficits noted. No signs and/or symptoms were reported regarding the genitourinary system. EENT: No deficits noted. No signs and/or symptoms were reported regarding the EENT system. Derm: No deficits noted. No signs and/or symptoms reported regarding the dermatologic system. Skin is intact, is healthy with good turgor, Skin is dry, Skin temperature is warm. Musculoskeletal: Circulation, motion, and sensation intact. 20:58 Reassessment: Patient appears in no apparent distress at this time. Patient and/or lg3 family updated on plan of care and expected duration. Pain level reassessed. Patient is alert, oriented x 3, equal unlabored respirations, skin warm/dry/pink. Neuro: No deficits noted. Guadalupe Agitation-Sedation Scale (RASS): 0 - Alert and Calm Level of Consciousness is awake, alert, obeys commands, Oriented to person, place, time, situation. Vital Signs: 14:16 BP 200 / 95; Pulse 106; Resp 17; Temp 98.8(O); Pulse Ox 97% on R/A; Weight 87.54 kg tw2 (R); Height 5 ft. 2 in. (157.48 cm); Pain 10/10; 14:42 BP 159 / 86; Pulse 115; Resp 18; Pulse Ox 98% on R/A; tw2 15:43 BP 173 / 101; Pulse 108; Resp 18; Pulse Ox 99% on 2 lpm NC; tw2 16:24 BP 169 / 105; Pulse 104; Resp 17; Pulse Ox 96% on R/A; Pain 10/10; tw2 18:22 BP 146 / 93; Pulse 107; Resp 18; Pulse Ox 97% on R/A; tw2 18:50 Pulse Ox 88% on R/A; tw2 20:57 BP 150 / 86; Pulse 102; Resp 17; Pulse Ox 98% on R/A; lg3 14:16 Body Mass Index 35.30 (87.54 kg, 157.48 cm) tw2 18:50 pt placed on o2 at 2L at this time. pt drowsy, falls asleep easily. provider notified. tw2 will continue to monitor ED Course: 14:16 Bed in low position. Call light in reach. Pulse ox on. NIBP on. Warm blanket given. tw2 14:23 Patient arrived in ED. tw2 14:24 Duane Gordon PA is PHCP. [facility] 14:24 Leann Pretty is Attending Physician. [facility] 14:25 Maintain EMS IV. Dressing intact. Good blood return noted. Site clean \\T\\ dry. Gauge \\T\\ tw 2 site: 20 g RIGHT ac. 14:29 Triage completed. tw2 14:30 Arm band placed on. tw2 14:32 Keke Mays RN is Primary Nurse. tw2 15:21 CBC with Diff Sent. tw2 15:21 BMP Sent. tw2 16:22 Ankle Left 3 View XRAY In Process Unspecified. EDMS 16:23 Tib Fib Left XRAY In Process Unspecified. EDMS 16:23 Ankle Right 3 View XRAY In Process Unspecified. EDMS 18:31 Ankle Left 3 View XRAY In Process Unspecified. EDMS 18:41 José Antonio Barry MD is Referral Physician. [facility] 20:41 Crutch training done. [facility] 20:58 No provider procedures requiring assistance completed. IV discontinued, intact, lg3 bleeding controlled, No redness/swelling at site. Pressure dressing applied. Administered Medications: 14:24 Drug: Dilaudid (HYDROmorphone) 1 mg Route: IVP; Site: right subclavian; tw2 14:55 Follow up: Response: No adverse reaction; Pain is unchanged, physician notified; RASS: tw2 Alert and Calm (0) 14:59 Drug: Dilaudid (HYDROmorphone) 1 mg {Note: RASS 0.} Route: IVP; Site: right antecubital;tw2 16:15 Follow up: Response: No adverse reaction; Pain is unchanged, physician notified; RASS: tw2 Alert and Calm (0) 16:16 Drug: Zofran (Ondansetron) 4 mg Route: IVP; Site: right antecubital; tw2 17:00 Follow up: Response: No adverse reaction tw2 16:19 Drug: morphine 4 mg Route: IVP; Infused Over: 4 mins; Site: right antecubital; tw2 16:30 Follow up: Response: No adverse reaction; Pain is decreased; RASS: Alert and Calm (0) tw2 17:19 Drug: Propofol 50 mg Route: IVP; Site: right antecubital; tw2 18:19 Follow up: Response: No adverse reaction tw2 17:19 Drug: Propofol 30 mg Route: IVP; Site: right antecubital; tw2 18:20 Follow up: Response: No adverse reaction tw2 18:52 Drug: Zofran (Ondansetron) 4 mg Route: IVP; Site: right antecubital; tw2 20:08 Follow up: Response: No adverse reaction lg3 Medication: 14:31 VIS not applicable for this client. tw2 Outcome: 18:42 Discharge ordered by . torrey 20:58 Discharged to home via wheelchair, with family. lg3 20:58 Condition: stable 20:58 Discharge instructions given to patient, family, Instructed on discharge instructions, follow up and referral plans. medication usage, Demonstrated understanding of instructions, follow-up care, medications, Prescriptions given X 1. 21:02 Patient left the ED. lg3 Signatures: Dispatcher [employer] EDMS Duane Gordon PA PA jmm Wise, Tara RN RN tw2 Andree Harris [facility] Allie Tomas RN RN lg3
[2022-03-27 21:37] VITALS: BP 150/86; O2SAT 98
== END 2022-03-27 21:02 | disposition home or self-care (01) ==
LOC: ER 14:19
PROC: 0QSKXZZ Reposition Left Fibula, External Approach (ICD-10-PCS; principal; 2022-03-27)
DX: S82.852A Displaced trimalleolar fracture of left lower leg, initial encounter for closed fracture (principal)
CPT/HCPCS: 36415; 80048; 85025; 99285; J1170; J2405; J2704

== ENCOUNTER 2022-04-08 11:26 | Day surgery (SDC) | payer SELFPAY ==
[2022-04-06 10:21] LABS: SARS-CoV-2 Antigen Rapid Res Negative (Negative)
--- NOTE | 2022-04-07 07:23 | EKG ---
Test Date: 2022-04-06 Test Time: 08:48:53 Airplane Captain: BRIGHT MEASUREMENT RESULTS: Intervals: Rate: 93 CT: 140 QRSD: 80 QT: 358 QTc: 445 [place]: P: 56 CT: 140 QRS: 8 T: 85 INTERPRETIVE STATEMENTS: Normal sinus rhythm Nonspecific ST and T wave abnormality Abnormal ECG No previous ECG available for comparison Electronically Signed On 04-07-22 07:19:35 CDT by Raymond Jolly
[2022-04-08] MEDS ORDERED: Ringers Lactate 1,000 ML IV ONE ×2 (12:05→15:06)
[2022-04-08] MEDS ORDERED: CEFAZOLIN SODIUM 1 GM/VIAL ONE (12:05)
[2022-04-08] MEDS ORDERED: FENTANYL CITR 100 MCG/2 ML ONE ×2 (12:17→13:44)
[2022-04-08] MEDS ORDERED: LIDOCAINE 1% MPF 5 ML VIAL ONE (12:17)
[2022-04-08] MEDS ORDERED: dexAMETHasone 10 MG/ML VIAL ONE ×2 (12:17→13:45)
[2022-04-08] MEDS ORDERED: SCOPOLAMINE HYDROBROMIDE PATCH TD ONE (12:17)
[2022-04-08] MEDS ORDERED: BUPIVACAINE 0.25% PF 10 ML VIAL ONE (12:17)
[2022-04-08] MEDS ORDERED: EPINEPHRINE/PF 1 MG/ML AMP ONE (12:18)
[2022-04-08] MEDS ORDERED: MIDAZOLAM HCL 2 MG/2 ML INJ ONE ×2 (12:18→18:08)
[2022-04-08] MEDS ORDERED: propofoL 200 MG/20 ML VIAL IV ONE (13:44)
[2022-04-08] MEDS ORDERED: ONDANSETRON 4 MG/2 ML VIAL ONE (13:45)
[2022-04-08] MEDS ORDERED: KETOROLAC 30 MG/ML INJ ONE (13:45)
[2022-04-08] MEDS ORDERED: ROCURONIUM 50 MG/5 ML VIAL IV ONE (13:45)
[2022-04-08] MEDS ORDERED: LIDOCAINE 2% MPF 5 ML VIAL ONE (13:45)
[2022-04-08] MEDS ORDERED: LANO/MINERAL OIL/PETRO 3.5 GM ONE (14:39)
[2022-04-08] MEDS ORDERED: MEPERIDINE HCL 25 MG/ML SYR ONE (18:08)
--- NOTE | 2022-04-08 18:09 | RAD REPORT ---
EXAM DESCRIPTION: RAD - Ankle Left 2 View - 04/08/2022 5:57 pm FINDINGS: There were total of 39 portable C-arm views obtained during intraoperative fluoroscopic as sisted placement of fixation hardware. Images show stepwise placement of the hardware. No suspicious or unexpected finding. Fluoro time was 2.3 minutes with a 5.51 mGy cumulative dose.
[2022-04-08] MEDS: HYDROMORPHONE HCL 1 MG/ML INJ ONE ×2 (18:20→18:28)
[2022-04-08 19:04] VITALS: BP 127/83; TEMP 98.1
[2022-04-08 19:33] VITALS: O2SAT 94
--- NOTE | 2022-04-09 04:48 | OP ---
Date of Procedure: 04/08/2022 Surgeon: José Antonio Barry MD Preoperative Diagnosis: Left trimalleolar fracture dislocation of the ankle, which is comminuted. Postoperative Diagnosis: Left trimalleolar fracture dislocation of the ankle, which is comminuted. Procedures: Open reduction and internal fixation of medial malleolus, open reduction and internal fi xation of lateral malleolus, and open reduction and internal fixation of posterior malleolus. Estimated Blood Loss: 20 cc. Complications: There were no complications. Specimen: No pathology specimens sent. Indications: Ms. Zaragoza is a 61-year-old female who unfortunately injured her ankle sustai carlos a small chip fracture of the lateral malleolus, but unfortunately also sustained a left ankle in jury consistent with a fracture dislocation with injury to medial, lateral, and posterior malleoli. She was seen in the Emergency Department where she underwent a closed reduction, which improved this. She came to see me in my office. The risks, benefits, and alternatives of different methods of geovanna ating this have been discussed with the patient. However, obviously open reduction and internal fixa tion is indicated. The posterior malleolus piece appears to be very large and will need fixation as well. She says she understood the very significant injury and agrees to proceed and all of her quest ions have been answered. Procedure In Detail: The patient was taken to the operating room and placed in the supine position. General anesthesia was obtained by staff. Following this, she was then rolled prone. She was appro priately positioned by Anesthesia. A well-padded tourniquet was placed around superior left thigh. Left lower extremity was then prepped and draped in the usual sterile fashion for the procedure, givi ng ability to flex and extend the knee without difficulty. C-arm was brought in to ensure we can get very good views and after this decision was made to proceed first medially. A medial incision was m trinity carefully through skin and soft tissues and the fracture site is seen. The distal piece is fairl y small, but does appear it would hold screws. The more proximal fracture unfortunately has a small amount of comminution primarily posterior, which makes reduction and fixation a little difficult. It was secured using 2 K-wires and best x-ray pictures are done with care being taken to avoid injuring the fracture bed of the rather large posterior malleolar fragment. Decision was made that this redu ction appears to be essentially anatomic and despite comminution, incision was made to place 2 cannul ated screws to fix this fracture first. After this, a posterolateral incision was made carefully thr ough skin and soft tissues with meticulous hemostasis being maintained using Bovie electrocautery. T he interval between the flexor hallucis longus and the peroneal tendons is seen, with care being take n to avoid injury to the sural nerve. This was then opened and the flexor hallucis longus was then g ently moved from the posterior aspect of the tibia. The fracture site itself was not well visualized as there was overlying periosteum posteriorly. However, a combination of downward pressure does stephanie ng it down to what appears to be concentric on the C-arm. Decision was made to place revisional post erior plate with 1 proximal screw using the inferior portion of the plate as a buttress. This appear s to reapproximate it fairly well. The decision was made not to continue fixation until we address t he fibula. The interval was used slightly more lateral, protecting the peroneal tendon to address th e rather high fibular fracture. This is an extremely long oblique fracture with very thin reeds. Th e posterolateral from Acumed is then placed with the ankle being held in the best position of reducti on. This was done using cluster inferiorly as well as the superior screws with clamp reduction being held. After this, the medial and lateral malleoli are fixed and there is a buttress plate on the po sterior aspect of the tibia. The provisional screw was loosened slightly and the plate was positione d for best fit with downward pressure. The screw was again tightened giving a good buttress. After this, a 2nd screw was then placed proximally. A C-arm was observed, was found to have a slight diast asis, but appeared to be at appropriate level. Ankle appeared to be located with good mortise. One distal locked screw was then used to avoid any toggling of the plate, but it did appear to perform a good buttress. The first screw was then removed as it was bicortical to allow for compression and wa s slightly long. After this was done, both incisions were irrigated and the skin was closed using in terrupted 2-0 Vicryl sutures, followed by alfredito. It was then covered with Aquacel dressing as well as generous sterile dressing and placed in a posterior splint with a U. The patient was then awaken ed and taken to recovery room in good condition with no complications. /WOLF Voice ID: [id number] Report ID: [id number]
== END 2022-04-08 19:33 | disposition home or self-care (01) ==
LOC: PRE 11:26 → OR 19:33
PROVIDERS: ATTEND Orthopaedic Surgery
PROC: 0QSH04Z Reposition Left Tibia with Internal Fixation Device, Open Approach (ICD-10-PCS; 2022-04-08)
PROC: 0QSH04Z Reposition Left Tibia with Internal Fixation Device, Open Approach (ICD-10-PCS; 2022-04-08)
PROC: 0QSK04Z Reposition Left Fibula with Internal Fixation Device, Open Approach (ICD-10-PCS; principal; 2022-04-08 14:00)
DX: S82.852A Displaced trimalleolar fracture of left lower leg, initial encounter for closed fracture (principal); Z20.822 Contact with and (suspected) exposure to COVID-19
CPT/HCPCS: 36415; 87811; 93005; J0171; J0690; J1100; J1170; J2175; J2250; J2405; J2704; J3010; J7120